=== PATIENT | male | born 1985 | race Caucasian/White ===

== ENCOUNTER 2018-08-09 03:45 | Emergency (ER) | payer SELFPAY ==
[~2018-08-09] VITALS: Ht 180.3 cm; Wt 99.8 kg
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
[2018-08-09 03:46] VITALS: BP 143/96
--- NOTE | 2018-08-09 03:50 | NUR ---
Patient being evaluated by physician.
[2018-08-09 03:53] VITALS: BP 143/96
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
== END 2018-08-09 03:53 ==
LOC: MED 03:45
DX: Z02.89 Encounter for other administrative examinations (principal)
CPT/HCPCS: 99283